=== PATIENT | male | born 1975 | race Caucasian/White ===

== ENCOUNTER 2023-12-04 14:31 | Outpatient (OUT) | payer BC, SELFPAY | END 2023-12-04 14:32 | disposition home or self-care (01) | LOC: PST 14:31 | PROVIDERS: Visit Provider Surgery | DX: Z01.818 Encounter for other preprocedural examination (principal); Z12.11 Encounter for screening for malignant neoplasm of colon ==

== ENCOUNTER 2023-12-12 06:23 | Day surgery (SDC) | payer BC, SELFPAY ==
--- OUTSIDE RECORDS SUMMARY | 2023-12-12 06:29 | XMS_ITS | CCD ---
Author Organization [facility] Care Team Providers Care Compressor Operator Portable Name Role Phone ASA PICKERING Attending Unavailable ASA PICKERING Admitting Unavailable DR PROSPER BURNS Primary Care Unavailable GRANT, DR CHENG Primary Care Unavailable SHAIKH RUBIO Admitting Unavailable MALGORZATA, DR HER Consulting Unavailable SHAIKH RUBIO Attending Unavailable SABI, DR BAN Hernandez Consulting Unavailable Janes Emerson Consulting Unavailable ALFA KHAN Consulting Unavailable SHAIKH RUBIO Consulting Unavailable PROSPER BURNS Attending Unavailable GEORGE RENEE Attending Unavailable PROSPER BURNS Referring Unavailable PROSPER BURNS Primary Care Unavailable Problems Active Problems Problem Classification Problem Date Documented Da te Episodic/Chronic Coma; stupor; and brain damage (1 source) Somnolence; Translations: [SOMNOLENCE] Onset: 07-10-2021 Episodic Esophageal disorders (1 source) Gastro-esophageal reflux disease without esophagitis; Translations: [GERD WITHOUT ESOPHAGITIS] Onset: 02-23-2021 Chronic Essential hypertension (1 source) Essential (primary) hypertension; Translations: [ESSENTIAL PRIMARY HYPERTENSION] Onset: 07-10-2021 Chronic Malaise and fatigue (1 source) Chronic fatigue, unspecified; Translations: [CHRONIC FATIGUE UNSPECIFIED] Onset: 07-10-2021 Chronic Other congenital anomalies (1 source) Klippel-Feil syndrome; 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] Onset: 07-10-2021 Chronic Other nutritional; endocrine; and metabolic disorders (1 source) Overweight; Translations: [OVERWEIGHT] Onset: 07-10-2021 Episodic Other screening for suspected conditions (not mental disorders or infectious disease) (1 source) Encounter for screening for malignant neoplasm of colon; Translations: [Encounter for screening for malignant neoplasm of colon] Onset: 11-13-2023 Episodic Pneumonia (except that caused by tuberculosis or sexually transmitted disease) (1 source) Pneumonia (except that caused by tuberculosis or sexually transmitted disease); Translations: [PNEUMONIA D/T CORONAVIRUS DIS 2019] Onset: 02-23-2021 Residual codes; unclassified (4 sources) Obstructive sleep apnea (adult) (pediatric); Translations: [OBSTRUCTIVE SLEEP APNEA] Onset: 07-04-2021 Chronic Residual codes; unclassified (1 source) Other sleep disorders; Translations: [OTHER SLEEP DISORDERS] Onset: 07-10-2021 Chronic Respiratory failure; insufficiency; arrest (adult) (1 source) Dependence on supplemental oxygen; Translations: [DEPENDENCE ON SUPPLEMENTAL OXYGEN] Onset: 02-23-2021 Chronic Unclassified (1 source) Colon Cancer Screening Onset: 11-13-2023 Viral infection (3 sources) COVID-19; Translations: [COVID-19] Onset: 02-17-2021 Past or Other Problems Problem Classification Problem Date Documented Da te Episodic/Chronic Other aftercare (1 source) Other terminal operations manager (current) drug therapy; Translations: [OTH LONG-TERM CURRENT DRUG THERAPY] Onset: 02-23-2021 Episodic Respiratory failure; insufficiency; arrest (adult) (1 source) Acute respiratory failure with hypoxia; Translations: [ACUTE RESPIRATORY FAIL W/HYPOXIA] Onset: 02-23-2021 Episodic Results Test Name Value Interpretation Reference Range Facil ity CBC AUTO DIFFon 02-21-2021 BASO # 0.0 103/ul Normal 0.0-0.1 [facility] Comment on above: Performed By: #### T ZACH, CMP, CRP #### [facility] [address] [place], [place] [address] Sam Serene Basophils/100 WBC (Bld) 0.6 % Normal 0.2-2.0 [facility] Comment on above: Performed By: #### T ZACH, CMP, CRP #### [facility] [address] [place], [place] [address] Sam Serene EO # 0.0 103/ul Normal 0.0-0.7 [facility] Comment on above: Performed By: #### T ZACH, CMP, CRP #### [facility] [address] [place], [place] [address] Sam Serene Eosinophils/100 WBC (Bld) 0.0 % Critically low 0.9-7.0 [facility] Comment on above: Performed By: #### Zully SERRANO CMP CRP #### [facility] [address] [place] [address] Sam Serene Erythrocyte distribution width (RBC) [Ratio] 13.2 % Normal 11.0-15.0 [facility] Comment on above: Performed By: #### Zully SERRANO CMP, CRP #### [facility] [address] [place] [address] Sam Serene Hematocrit (Bld) [Volume fraction] 41.3 % Critically low 42.0-54.0 [facility] Comment on above: Performed By: #### Zully SERRANO CMP, CRP #### [facility] [address] [place] [address] Sam Serene Hemoglobin (Bld) [Mass/Vol] 13.3 g/dL Critically low 14.0-18.0 [facility] Comment on above: Performed By: #### Zully SERRANO CMP, CRP #### [facility] [address] [place] [address] Sam Serene IG # 0.68 10e3/ul Critically high 0.00-0.03 [facility] Comment on above: Performed By: #### Zully SERRANO CMP, CRP #### [facility] [address] [place] [address] Sam Serene IG % 9.6 % Critically high 0.0-0.5 [facility] Comment on above: Performed By: #### Zully SERRANO CMP, CRP #### [facility] [address] [place] [address] Sam Serene LYMPH # 0.9 103/ul Critically low 1.2-3.8 [facility] Comment on above: Performed By: #### Zully SERRANO CMP, CRP #### [facility] [address] [place] [address] Sam Serene Lymphocytes/100 WBC (Bld) 12.8 % Critically low 20.5-60.0 [facility] Comment on above: Performed By: #### T ZACH, CMP, CRP #### [facility] [address] [place], [place] [address] Sam Serene MANUAL DIFF REQ NO Normal [facility] Comment on above: Performed By: #### Zully SERRANO CMP, CRP #### [facility] [address] [place] [id number] Sam Serene MCH (RBC) [Entitic mass] 26.8 pg Normal 25.9-34.0 [facility] Comment on above: Performed By: #### Zully SERRANO CMP, CRP #### [facility] [address] [place] [id number] Sam Serene MCHC (RBC) [Mass/Vol] 32.2 g/dL Normal 29.9-35.2 [facility] Comment on above: Performed By: #### Zully SERRANO CMP, CRP #### [facility] [address] [place] [id number] Sam Serene MCV (RBC) [Entitic vol] 83.1 fL Normal 80.0-94.0 [facility] Comment on above: Performed By: #### Zully SERRANO CMP, CRP #### [facility] [address] [place] [id number] Sam Serene MONO # 0.5 103/ul Normal 0.3-0.8 [facility] Comment on above: Performed By: #### Zully SERRANO CMP, CRP #### [facility] [address] [place] [id number] Sam Serene Monocytes/100 WBC (Bld) 7.2 % Normal 1.7-12.0 [facility] Comment on above: Performed By: #### Zully SERRANO CMP, CRP #### [facility] [address] [place] [id number] Sam Serene NEUT # 5.0 103/ul Normal 1.4-6.5 [facility] Comment on above: Performed By: #### Zully SERRANO CMP, CRP #### [facility] [address] [place] [id number] Sam Serene Neutrophils/100 WBC (Bld) 69.8 % Normal 43.0-75.0 [facility] Comment on above: Performed By: #### T ZACH, CMP, CRP #### [facility] [address] [place] [id number] Sam Cast Platelet mean volume (Bld) [Entitic vol] 9.5 fL Normal 9.5-13.5 [facility] Comment on above: Performed By: #### T ZACH, CMP, CRP #### [facility] [address] [place] [address] Sam Cast PLT 287 103/ul Normal 150-450 [facility] Comment on above: Performed By: #### T ZACH, CMP, CRP #### [facility] [address] [place] [address] Sam Cast RBC 4.97 106/ul Normal 4.70-6.10 [facility] Comment on above: Performed By: #### T ZACH, CMP, CRP #### [facility] [address] [place] [address] Sam Cast WBC 7.1 103/ul Normal 4.0-11.0 [facility] Comment on above: Performed By: #### T ZACH, CMP, CRP #### [facility] [address] [place], [place] [id number] Sam Cast CRPon 02-21-2021 CRP [Mass/Vol] mg/L Normal <=1.0 [facility] Comment on above: Performed By: #### T ZACH CMP, CRP #### [facility] [address] [place], [place] [id number] Sam Cast CULTURE SPUTUMon 02-21-2021 CULTURE SPUTUM Culture Observations: NORMAL RESPIRATORY ERNIE. Normal [facility] Comment on above: Performed By: #### T ZACH, CMP, CRP #### [facility] [address] [place], [place] [id number] Sam Cast PROF 14(COMP METB)on 021 Albumin [Mass/Vol] 2.5 g/dL Critically low 3.5-5.0 [facility] Comment on above: Performed By: #### C RP, CMP, SHEILA #### [facility] [address] [place] [id number] Sam Serene Albumin/Globulin [Mass ratio] 0.7 {ratio} Normal [facility] Comment on above: Performed By: #### C RPMERRILL, SHEILA #### [facility] [address] [place] [id number] Sam Serene ALP [Catalytic activity/Vol] 89 U/L Normal 38-126 [facility] Comment on above: Performed By: #### C RP CMP, SHEILA #### [facility] [address] [place] [address] Sam Serene ALT [Catalytic activity/Vol] 76 U/L Critically high 21-72 [facility] Comment on above: Performed By: #### C RPMERRILL, SHEILA #### [facility] [address] [place] [id number] Sam Serene Anion gap [Moles/Vol] 13.8 mmol/L Normal [facility] Comment on above: Performed By: #### C RP CMP, SHEILA #### [facility] [address] [place] [address] Sam Serene AST [Catalytic activity/Vol] 32 U/L Normal 17-59 [facility] Comment on above: Performed By: #### C ISRAEL CMP, SHEILA #### [facility] [address] [place] [id number] Sam Serene Bilirubin [Mass/Vol] 0.5 mg/dL Normal 0.2-1.3 [facility] Comment on above: Performed By: #### C RP CMP, SHEILA #### [facility] [address] [place] [phone] Sam Serene Calcium [Mass/Vol] 8.2 mg/dL Critically low 8.4-10.2 [facility] Comment on above: Performed By: #### C RP CMP, SHEILA #### [facility] [address] [place] [phone] Sam Serene Chloride [Moles/Vol] 108 mmol/L Critically high 98-107 [facility] Comment on above: Performed By: #### C RP CMP, SHEILA #### [facility] [address] [place], [place] [address] Sam Serene CO2 [Moles/Vol] 23.2 mmol/L Normal 22.0-30.0 [facility] Comment on above: Performed By: #### C RP, CMP, SHEILA #### [facility] [address] [place] [phone] Sam Serene Creatinine [Mass/Vol] 0.93 mg/dL Normal 0.66-1.25 [facility] Comment on above: Performed By: #### C RP, CMP, SHEILA #### [facility] [address] [place] [id number] Sam Serene EGFR-AF GAMBIAN >60 Normal >=60 [facility] Comment on above: Performed By: #### C RP, CMP, SHEILA #### [facility] [address] [place] [phone] Sam Serene EGFR-NON AF GAMBIAN >60 Normal >=60 [facility] Comment on above: Performed By: #### C RP, CMP, SHEILA #### [facility] [address] [place] [phone] Sam Serene Globulin (S) [Mass/Vol] 3.6 g/dL Normal [facility] Comment on above: Performed By: #### C RP, CMP, SHEILA #### [facility] [address] [place] [phone] Sam Serene Glucose [Mass/Vol] 161 mg/dL Critically high 74-106 [facility] Comment on above: Performed By: #### C RP, CMP, SHEILA #### [facility] [address] [place] [phone] Sam Serene Potassium [Moles/Vol] 4.0 mmol/L Normal 3.4-5.0 [facility] Comment on above: Performed By: #### C RP, CMP, SHEILA #### [facility] [address] [place] [phone] Sam Serene Protein [Mass/Vol] 6.1 g/dL Normal 6.1-8.2 [facility] Comment on above: Performed By: #### C RP, CMP, SHEILA #### [facility] [address] [place] [address] Sam Serene Sodium [Moles/Vol] 141 mmol/L Normal 137-145 [facility] Comment on above: Performed By: #### C RP, CMP, SHEILA #### [facility] [address] [place] [address] Sam Serene Urea nitrogen [Mass/Vol] 19.0 mg/dL Normal 9.0-20.0 [facility] Comment on above: Performed By: #### C RP, CMP, SHEILA #### [facility] [address] [place] [address] Sam Serene Urea nitrogen/Creatinine [Mass ratio] 20.4 mg/mg Normal [facility] Comment on above: Performed By: #### C RP, CMP, SHEILA #### [facility] [address] [place] [address] Sam Serene SPUTUM GRAM STAINon 02-22-20 21 COMMENTS Normal [facility] Comment on above: Performed By: #### T ZACH CMP, CRP #### [facility] [address] [place] [address] Sam Serene DIPHTHEROIDS Normal [facility] Comment on above: Performed By: #### Zully SERRANO CMP, CRP #### [facility] [address] [place] [address] Sam Serene EPITHELIALS <25 Normal [facility] Comment on above: Performed By: #### T ZACH CMP, CRP #### [facility] [address] [place] [address] Sam Serene FUNGAL ELEMENTS Normal [facility] Comment on above: Performed By: #### T ZACH CMP, CRP #### [facility] [address] [place] [address] Sam Serene GRAM NEG BACILLI RARE Normal [facility] Comment on above: Performed By: #### T ZACH CMP, CRP #### [facility] [address] [place] [address] Sam Serene GRAM NEG DIPPLOCOCCI Normal [facility] Comment on above: Performed By: #### T ZACH, CMP, CRP #### [facility] [address] [place] [address] Sam Serene GRAM POS BACILLI Normal [facility] Comment on above: Performed By: #### T ZACH, CMP, CRP #### [facility] [address] [place] [address] Sam Serene GRAM POSITIVE COCCI FEW Normal [facility] Comment on above: Performed By: #### T ZACH, CMP, CRP #### [facility] [address] [place] [address] Sam Serene WBC (Bld) [#/Vol] 10*3/uL Normal [facility] Comment on above: Performed By: #### T ZACH CMP, CRP #### [facility] [address] [place] [address] Sam Serene THEOPHYLLINEon 02-21-2021 THEOPHYLLINE 9.5 ug/mL Normal 8.0-20.0 [facility] Comment on above: Performed By: #### C RP, CMP, SEHILA #### [facility] [address] [place], [place] [id number] Sam Serene CBC AUTO DIFFon 02-20-2021 BASO # 0.0 103/ul Normal 0.0-0.1 [facility] Comment on above: Performed By: #### C BC #### [facility] [address] [place], [place] [id number] Sam Serene Basophils/100 WBC (Bld) 0.5 % Normal 0.2-2.0 [facility] Comment on above: Performed By: #### C BC #### [facility] [address] [place] [address] Sam Serene EO # 0.0 103/ul Normal 0.0-0.7 [facility] Comment on above: Performed By: #### C BC #### [facility] [address] [place] [address] Sam Serene Eosinophils/100 WBC (Bld) 0.0 % Critically low 0.9-7.0 [facility] Comment on above: Performed By: #### C BC #### [facility] [address] [place] [phone] Sam Cast Erythrocyte distribution width (RBC) [Ratio] 13.2 % Normal 11.0-15.0 [facility] Comment on above: Performed By: #### C BC #### [facility] [address] [place] [phone] Sam Cast Hematocrit (Bld) [Volume fraction] 40.8 % Critically low 42.0-54.0 [facility] Comment on above: Performed By: #### C BC #### [facility] [address] [place] [phone] Sam Cast Hemoglobin (Bld) [Mass/Vol] 13.1 g/dL Critically low 14.0-18.0 [facility] Comment on above: Performed By: #### C BC #### [facility] [address] [place] [address] Sammaurice Cast IG # 0.58 10e3/ul Critically high 0.00-0.03 [facility] Comment on above: Performed By: #### C BC #### [facility] [address] [place] [id number] Sam Serene IG % 9.7 % Critically high 0.0-0.5 [facility] Comment on above: Performed By: #### C BC #### [facility] [address] [place], [place] [id number] Sam Serene LYMPH # 0.8 103/ul Critically low 1.2-3.8 [facility] Comment on above: Performed By: #### C BC #### [facility] [address] [place], [place] [id number] Sam Cast Lymphocytes/100 WBC (Bld) 13.7 % Critically low 20.5-60.0 [facility] Comment on above: Performed By: #### C BC #### [facility] [address] [place], [place] [id number] Sam Cast MANUAL DIFF REQ NO Normal [facility] Comment on above: Performed By: #### C BC #### [facility] [address] [place] [id number] Sam Cast MCH (RBC) [Entitic mass] 26.7 pg Normal 25.9-34.0 [facility] Comment on above: Performed By: #### C BC #### [facility] [address] [place], [place] [id number] Sam Cast MCHC (RBC) [Mass/Vol] 32.1 g/dL Normal 29.9-35.2 [facility] Comment on above: Performed By: #### C BC #### [facility] [address] [place] [phone] Sammaurice Cast MCV (RBC) [Entitic vol] 83.1 fL Normal 80.0-94.0 [facility] Comment on above: Performed By: #### C BC #### [facility] [address] [place] [address] Sam Cast MONO # 0.5 103/ul Normal 0.3-0.8 [facility] Comment on above: Performed By: #### C BC #### [facility] [address] [place], [place] [id number] Sam Cast Monocytes/100 WBC (Bld) 8.5 % Normal 1.7-12.0 [facility] Comment on above: Performed By: #### C BC #### [facility] [address] [place] [address] Sam Cast NEUT # 4.0 103/ul Normal 1.4-6.5 [facility] Comment on above: Performed By: #### C BC #### [facility] [address] [place], [place] [id number] Sam Serene Neutrophils/100 WBC (Bld) 67.6 % Normal 43.0-75.0 [facility] Comment on above: Performed By: #### C BC #### [facility] [address] [place], [place] [id number] Sam Serene Platelet mean volume (Bld) [Entitic vol] 9.3 fL Critically low 9.5-13.5 [facility] Comment on above: Performed By: #### C BC #### [facility] [address] [place] [id number] Sammaurice Herberten PLT 253 103/ul Normal 150-450 [facility] Comment on above: Performed By: #### C BC #### [facility] [address] [place], [place] [address] Sammaurice Cast RBC 4.91 106/ul Normal 4.70-6.10 [facility] Comment on above: Performed By: #### C BC #### [facility] [address] [place], [place] [address] Sammaurice Herberten WBC 6.0 103/ul Normal 4.0-11.0 [facility] Comment on above: Performed By: #### C BC #### [facility] [address] [place], [place] [address] Sammaurice Cast CRPon 02-20-2021 CRP 0.6 mg/dL Normal <=1.0 [facility] Comment on above: Performed By: #### Zully SERRANO CMP, CRP #### [facility] [address] [place], [place] [id number] Sam Cast PROF 14(COMP METB)on 021 Albumin [Mass/Vol] 2.5 g/dL Critically low 3.5-5.0 [facility] Comment on above: Performed By: #### Zully SERRANO CMP, CRP #### [facility] [address] [place], [place] [id number] Sam Serene Albumin/Globulin [Mass ratio] 0.7 {ratio} Normal [facility] Comment on above: Performed By: #### Zully SERRANO CMP, CRP #### [facility] [address] [place], [place] [address] Sam Serene ALP [Catalytic activity/Vol] 92 U/L Normal 38-126 [facility] Comment on above: Performed By: #### Zully SERRANO CMP, CRP #### [facility] [address] [place], [place] [id number] Sam Serene ALT [Catalytic activity/Vol] 79 U/L Critically high 21-72 [facility] Comment on above: Performed By: #### T ZACH, CMP, CRP #### [facility] [address] [place], [place] [address] Sam Serene Anion gap [Moles/Vol] 14.8 mmol/L Normal [facility] Comment on above: Performed By: #### Zully SERRANO CMP, CRP #### [facility] [address] [place], [place] [address] Sam Serene AST [Catalytic activity/Vol] 41 U/L Normal 17-59 [facility] Comment on above: Performed By: #### Zully SERRANO CMP, CRP #### [facility] [address] [place], [place] [address] Sam Serene Bilirubin [Mass/Vol] 0.4 mg/dL Normal 0.2-1.3 [facility] Comment on above: Performed By: #### Zully SERRANO CMP, CRP #### [facility] [address] [place] [address] Sam Serene Calcium [Mass/Vol] 8.0 mg/dL Critically low 8.4-10.2 [facility] Comment on above: Performed By: #### Zully SERRANO CMP, CRP #### [facility] [address] [place] [id number] Sam Serene Chloride [Moles/Vol] 106 mmol/L Normal 98-107 [facility] Comment on above: Performed By: #### Zully SERRANO CMP, CRP #### [facility] [address] [place] [phone] Sam Serene CO2 [Moles/Vol] 24.2 mmol/L Normal 22.0-30.0 [facility] Comment on above: Performed By: #### Zully SERRANO CMP, CRP #### [facility] [address] [place] [phone] Sam Serene Creatinine [Mass/Vol] 1.00 mg/dL Normal 0.66-1.25 [facility] Comment on above: Performed By: #### Zully SERRANO CMP, CRP #### [facility] [address] [place], [place] [address] Sam Serene EGFR-AF GAMBIAN >60 Normal >=60 [facility] Comment on above: Performed By: #### Zully SERRANO CMP, CRP #### [facility] [address] [place] [id number] Sam Serene EGFR-NON AF GAMBIAN >60 Normal >=60 [facility] Comment on above: Performed By: #### Zully SERRANO CMP, CRP #### [facility] [address] [place] [address] Sam Serene Globulin (S) [Mass/Vol] 3.5 g/dL Normal [facility] Comment on above: Performed By: #### Zully SERRANO CMP, CRP #### [facility] [address] [place] [address] Sam Serene Glucose [Mass/Vol] 159 mg/dL Critically high 74-106 [facility] Comment on above: Performed By: #### Zully SERRANO CMP, CRP #### [facility] [address] [place] [address] Sam Serene Potassium [Moles/Vol] 4.0 mmol/L Normal 3.4-5.0 [facility] Comment on above: Performed By: #### Zully SERRANO CMP, CRP #### [facility] [address] [place] [address] Sam Serene Protein [Mass/Vol] 6.0 g/dL Critically low 6.1-8.2 [facility] Comment on above: Performed By: #### Zully SERRANO CMP, CRP #### [facility] [address] [place] [id number] Sam Serene Sodium [Moles/Vol] 141 mmol/L Normal 137-145 [facility] Comment on above: Performed By: #### Zully SERRANO CMP, CRP #### [facility] [address] [place] [id number] Sam Serene Urea nitrogen [Mass/Vol] 21.0 mg/dL Critically high 9.0-20.0 [facility] Comment on above: Performed By: #### Zully SERRANO CMP, CRP #### [facility] [address] [place] [address] Sam Serene Urea nitrogen/Creatinine [Mass ratio] 21.0 mg/mg Normal [facility] Comment on above: Performed By: #### T ZACH CMP, CRP #### [facility] [address] [place] [address] Sam Serene THEOPHYLLINEon 02-20-2021 THEOPHYLLINE 7.7 ug/mL Critically low 8.0-20.0 [facility] Comment on above: Performed By: #### Zully SERRANO CMP, CRP #### [facility] [address] [place] [address] Sam Serene CBC W MANUAL DIFFon 02-20-20 21 ATYPICAL LYMPH # Normal [facility] [facility] Comment on above: Performed By: #### C KYM #### [facility] [address] [place] [address] Sam Serene ATYPICAL LYMPH % Normal [facility] Comment on above: Performed By: #### C KYM #### [facility] [address] [place] [address] Sam Serene BAND # 0.1 103/ul Normal 0.0-0.3 [facility] Comment on above: Performed By: #### C KYM #### [facility] [address] [place] [address] Sam Serene BAND % 1 % Normal 0-5 [facility] Comment on above: Performed By: #### C KYM #### [facility] [address] [place] [address] Sam Serene BASOM # 0.00 103/ul Normal 0.00-0.10 [facility] Comment on above: Performed By: #### C KYM #### [facility] [address] [place] [address] Sam Serene BASOM % 0.0 % Critically low 0.2-2.0 [facility] Comment on above: Performed By: #### C KYM #### [facility] [address] [place] [address] Sam Serene BLAST # Normal [facility] Comment on above: Performed By: #### C KYM #### [facility] [address] [place] [address] Sam Serene BLAST % Normal [facility] Comment on above: Performed By: #### C KYM #### [facility] [address] [id number] Sam Serene CORRECTED WBC Normal 4.0-11.0 [facility] Comment on above: Performed By: #### C KYM #### [facility] [address] [address] Sam Serene EOS # 0.00 103/ul Normal 0.00-0.70 [facility] Comment on above: Performed By: #### C KYM #### [facility] [address] [address] Sam Serene EOS% 0.0 % Critically low 0.9-7.[address] [facility] Comment on above: Performed By: #### C KYM #### [facility] [address] [address] Sam Serene HCT 40.9 % Critically low 42.0-54.[address] [facility] Comment on above: Performed By: #### C KYM #### [facility] [address] [address] Sam Serene HGB 13.3 g/dl Critically low 14.0-18.[address] [facility] Comment on above: Performed By: #### C KYM #### [facility] [address] [address] Sam Serene LYMPHM # 0.90 103/ul Critically low 1.20-3.80 [facility] Comment on above: Performed By: #### C KYM #### [facility] [address] [address] Sam Serene LYMPHM% 15.0 % Critically low 20.5-60.0 [facility] Comment on above: Performed By: #### C KYM #### [facility] [address] [address] Sam Serene MCH 26.9 pg Normal 25.9-34.0 [facility] Comment on above: Performed By: #### C KYM #### [facility] [address] [address] Sammaurice Herberten MCHC 32.5 g/dl Normal 29.9-35.2 [facility] Comment on above: Performed By: #### C KYM #### [facility] [address] [address] Sammaurice Herberten MCV 82.8 fL Normal 80.0-94.0 [facility] Comment on above: Performed By: #### Tristian MEJÍA #### [facility] [address] [place] [address] Sam Serene METAMYELOCYTE # Normal [facility] Comment on above: Performed By: #### Tristian MEJÍA #### [facility] [address] [place] [address] Sam Serene METAMYELOCYTE % Normal [facility] Comment on above: Performed By: #### Tristian MEJÍA #### [facility] [address] [place] [address] Sam Serene MONOM# 0.66 103/ul Normal 0.30-0.80 [facility] Comment on above: Performed By: #### Tristian MEJÍA #### [facility] [address] [place] [address] Sam Serene MONOM% 11.0 % Normal 1.7-12.0 [facility] Comment on above: Performed By: #### Tristian MEJÍA #### [facility] [address] [place] [address] Sammaurice Herberten MPV 9.1 fL Critically low 9.5-13.5 [facility] Comment on above: Performed By: #### Tristian MEJÍA #### [facility] [address] [place] [address] Sam Serene MYELOCYTE # Normal [facility] Comment on above: Performed By: #### C KYM #### [facility] [address] [place] [address] Sam Serene MYELOCYTE % Normal [facility] Comment on above: Performed By: #### Tristian MEJÍA #### [facility] [address] [place] [address] Sam Serene NRBC Normal [facility] Comment on above: Performed By: #### Tristian MEJÍA #### [facility] [address] [place], [place] [address] Sam Serene PLT 234 103/ul Normal 150-450 [facility] Comment on above: Performed By: #### Tristian MEJÍA #### [facility] [address] [place], [place] [address] Sam Serene RBC 4.94 106/ul Normal 4.70-6.10 [facility] Comment on above: Performed By: #### Tristian MEJÍA #### [facility] [address] [id number] Sam Serene RDW 13.1 % Normal 11.0-15.0 [facility] Comment on above: Performed By: #### Tristian MEJÍA #### [facility] [address] [address] Sam Serene SEG # 4.38 103/ul Normal 1.40-6.50 [facility] Comment on above: Performed By: #### Tristian MEJÍA #### [facility] [address] [place], [place] [address] Sam Serene SEG % 73.0 % Normal 43.0-75.0 [facility] Comment on above: Performed By: #### Tristian MEJÍA #### [facility] [address] [place], [place] [address] Sam Serene WBC 6.0 103/ul Normal 4.0-11.0 [facility] Comment on above: Performed By: #### Tristian MEJÍA #### [facility] [address] [place], [place] [address] Sam Serene CRPon 02-19-2021 CRP 2.0 mg/dL Critically high <=1.0 [facility] Comment on above: Performed By: #### T ZACH, CMP, CRP #### [facility] [address] [place], [place] [address] Sammaurice Herberten PROF 14(COMP METB)on 021 Albumin [Mass/Vol] 2.4 g/dL Critically low 3.5-5.0 [facility] Comment on above: Performed By: #### T ZACH, CMP, CRP #### [facility] [address] [id number] Sam Serene Albumin/Globulin [Mass ratio] 0.7 {ratio} Normal [facility] Comment on above: Performed By: #### T ZACH, CMP, CRP #### [facility] [address] [id number] Sam Serene ALP [Catalytic activity/Vol] 106 U/L Normal 38-126 [facility] Comment on above: Performed By: #### T ZACH, CMP, CRP #### [facility] [address] [id number] Sam Serene ALT [Catalytic activity/Vol] 73 U/L Critically high 21-72 [facility] Comment on above: Performed By: #### T AZCH, CMP, CRP #### [facility] [address] [id number] Sam Serene Anion gap [Moles/Vol] 13.6 mmol/L Normal [facility] Comment on above: Performed By: #### T ZACH, CMP, CRP #### [facility] [address] [id number] Sam Serene AST [Catalytic activity/Vol] 56 U/L Normal 17-59 [facility] Comment on above: Performed By: #### T ZACH, CMP, CRP #### [facility] [address] [id number] Sam Serene Bilirubin [Mass/Vol] 0.3 mg/dL Normal 0.2-1.3 [facility] Comment on above: Performed By: #### T ZACH, CMP, CRP #### [facility] [address] [id number] Sam Serene Calcium [Mass/Vol] 8.1 mg/dL Critically low 8.4-10.2 [facility] Comment on above: Performed By: #### T ZACH, CMP, CRP #### [facility] [address] [id number] Sam Serene Chloride [Moles/Vol] 108 mmol/L Critically high 98-107 [facility] Comment on above: Performed By: #### Zully SERRANO CMP, CRP #### [facility] [address] [address] Sam Serene CO2 [Moles/Vol] 22.3 mmol/L Normal 22.0-30.0 [facility] Comment on above: Performed By: #### Zully SERRANO CMP, CRP #### [facility] [address] [address] Sam Serene Creatinine [Mass/Vol] 0.91 mg/dL Normal 0.66-1.25 [facility] Comment on above: Performed By: #### Zully SERRANO CMP, CRP #### [facility] [address] [address] Sam Serene EGFR-AF GAMBIAN >60 Normal >=60 [facility] Comment on above: Performed By: #### Zully SERRANO CMP, CRP #### [facility] [address] [address] Sam Serene EGFR-NON AF GAMBIAN >60 Normal >=60 [facility] Comment on above: Performed By: #### Zully SERRANO CMP, CRP #### [facility] [address] [place] [address] Sam Serene Globulin (S) [Mass/Vol] 3.6 g/dL Normal [facility] Comment on above: Performed By: #### Zully SERRANO CMP, CRP #### [facility] [address] [address] Sam Serene Glucose [Mass/Vol] 150 mg/dL Critically high 74-106 [facility] Comment on above: Performed By: #### Zully SERRANO CMP, CRP #### [facility] [address] [place] [address] Sam Serene Potassium [Moles/Vol] 3.9 mmol/L Normal 3.4-5.0 [facility] Comment on above: Performed By: #### Zully SERRANO CMP, CRP #### [facility] [address] [place], [place] [address] Sam Serene Protein [Mass/Vol] 6.0 g/dL Critically low 6.1-8.2 [facility] Comment on above: Performed By: #### Zully SERRANO CMP, CRP #### [facility] [address] [address] Sam Serene Sodium [Moles/Vol] 140 mmol/L Normal 137-145 [facility] Comment on above: Performed By: #### Zully SERRANO CMP, CRP #### [facility] [address] [address] Sam Serene Urea nitrogen [Mass/Vol] 20.0 mg/dL Normal 9.0-20.0 [facility] Comment on above: Performed By: #### Zully SERRANO CMP, CRP #### [facility] [address] [place] [address] Sam Serene Urea nitrogen/Creatinine [Mass ratio] 22.0 mg/mg Normal [facility] Comment on above: Performed By: #### Zully SERRANO CMP, CRP #### [facility] [address] [place] [address] Sam Serene THEOPHYLLINEon 02-19-2021 THEOPHYLLINE 12.1 ug/mL Normal 8.0-20.0 [facility] Comment on above: Performed By: #### Zully SERRANO CMP, CRP #### [facility] [address] [place] [address] Sam Serene CBC W MANUAL DIFFon 02-19-20 21 ATYPICAL LYMPH # 0.16 103/ul Normal [facility] Comment on above: Performed By: #### Zully SERRANO CMP, CRP #### [facility] [address] [place] [address] Sam Seerne ATYPICAL LYMPH % 4 % Normal [facility] Comment on above: Performed By: #### Zully SERRANO CMP, CRP #### [facility] [address] [place] [address] Sam Serene BAND # Normal 0.0-0.3 [facility] Comment on above: Performed By: #### Zully SERRANO CMP, CRP #### [facility] [address] [place], [place] [id number] Sam Serene BAND % Normal 0-5 [facility] Comment on above: Performed By: #### Zully SERRANO CMP, CRP #### [facility] [address] [address] Sam Serene BASOM # 0.00 103/ul Normal 0.00-0.10 [facility] Comment on above: Performed By: #### Zully SERRANO CMP, CRP #### [facility] [address] [address] Sam Serene BASOM % 0.0 % Critically low 0.2-2.0 [facility] Comment on above: Performed By: #### Zully SERRANO CMP, CRP #### [facility] [address] [place] [address] Sam Serene BLAST # Normal [facility] Comment on above: Performed By: #### Zully SERRANO CMP, CRP #### [facility] [address] [place] [address] Sam Serene BLAST % Normal [facility] Comment on above: Performed By: #### Zully SERRANO CMP, CRP #### [facility] [address] [place] [address] Sam Serene CORRECTED WBC Normal 4.0-11.0 [facility] Comment on above: Performed By: #### Zully SERRANO CMP, CRP #### [facility] [address] [place] [address] Sam Serene EOS # 0.00 103/ul Normal 0.00-0.70 [facility] Comment on above: Performed By: #### Zully SERRANO CMP, CRP #### [facility] [address] [place] [address] Sam Serene EOS% 0.0 % Critically low 0.9-7.0 [facility] Comment on above: Performed By: #### Zully SERRANO CMP, CRP #### [facility] [address] [place] [address] Sam Serene HCT 43.2 % Normal 42.0-54.0 [facility] Comment on above: Performed By: #### T ZACH, CMP, CRP #### [facility] [address] [address] Sammaurice Herberten HGB 13.7 g/dl Critically low 14.0-18.[address] [facility] Comment on above: Performed By: #### T ZACH, CMP, CRP #### [facility] [address] [address] Sammaurice Cast LYMPHM # 0.58 103/ul Critically low 1.20-3.80 [facility] Comment on above: Performed By: #### T ZACH, CMP, CRP #### [facility] [address] [address] Sam Serene LYMPHM% 15.0 % Critically low 20.5-60.[address] [facility] Comment on above: Performed By: #### T ZACH, CMP, CRP #### [facility] [address] [address] Sam Herberten MCH 26.7 pg Normal 25.9-34.0 [facility] Comment on above: Performed By: #### T ZACH, CMP, CRP #### [facility] [address] [address] Sam Cast MCHC 31.7 g/dl Normal 29.9-35.2 [facility] Comment on above: Performed By: #### T ZACH, CMP, CRP #### [facility] [address] [address] Sam Herberten MCV 84.0 fL Normal 80.0-94.0 [facility] Comment on above: Performed By: #### T ZACH, CMP, CRP #### [facility] [address] [address] Sam Serene METAMYELOCYTE # Normal [facility] Comment on above: Performed By: #### T ZACH, CMP, CRP #### [facility] [address] [id number] Sam Serene METAMYELOCYTE % Normal [facility] Comment on above: Performed By: #### T ZACH, CMP, CRP #### [facility] [address] [address] Sam Serene MONOM# 0.55 103/ul Normal 0.30-0.80 [facility] Comment on above: Performed By: #### Zully SERRANO CMP, CRP #### [facility] [address] [id number] Sam Serene MONOM% 14.0 % Critically high 1.7-12.0 [facility] Comment on above: Performed By: #### Zully SERRANO CMP, CRP #### [facility] [address] [id number] Sam Serene MPV 9.4 fL Critically low 9.5-13.5 [facility] Comment on above: Performed By: #### Zully SERRANO CMP, CRP #### [facility] [address] [place] [address] Sam Serene MYELOCYTE # Normal [facility] Comment on above: Performed By: #### Zully SERRANO CMP, CRP #### [facility] [address] [address] Sam Serene MYELOCYTE % Normal [facility] Comment on above: Performed By: #### Zully SERRANO CMP, CRP #### [facility] [address] [id number] Sam Serene NRBC Normal [facility] Comment on above: Performed By: #### Zully SERRANO CMP, CRP #### [facility] [address] [id number] Sam Serene PLT 219 103/ul Normal 150-450 [facility] Comment on above: Performed By: #### T ZACH, CMP, CRP #### [facility] [address] [id number] Sam Serene RBC 5.14 106/ul Normal 4.70-6.10 [facility] Comment on above: Performed By: #### T ZACH, CMP, CRP #### [facility] [address] [address] Sam Serene RDW 13.0 % Normal 11.0-15.0 [facility] Comment on above: Performed By: #### Zully SERRANO CMP, CRP #### [facility] [address] [id number] Sam Cast SEG # 2.61 103/ul Normal 1.40-6.50 [facility] Comment on above: Performed By: #### Zully SERRANO CMP, CRP #### [facility] [address] [id number] Sam Cast SEG % 67.0 % Normal 43.0-75.0 [facility] Comment on above: Performed By: #### Zully SERRANO CMP, CRP #### [facility] [address] [id number] Sammaurice Cast WBC 3.9 103/ul Critically low 4.0-11.[address] [facility] Comment on above: Performed By: #### Zully SERRANO CMP, CRP #### [facility] [address] [address] Sam Cast CRPon 02-18-2021 CRP 5.7 mg/dL Critically high <=1.0 [facility] Comment on above: Performed By: #### Zully SERRANO CMP, CRP #### [facility] [address] [id number] Sam Cast PROF 14(COMP METB)on 021 Albumin [Mass/Vol] 2.5 g/dL Critically low 3.5-5.0 [facility] Comment on above: Performed By: #### Zully SERRANO CMP, CRP #### [facility] [address] [address] Sam Cast Albumin/Globulin [Mass ratio] 0.6 {ratio} Normal [facility] Comment on above: Performed By: #### Zully SERRANO CMP, CRP #### [facility] [address] [id number] Sam Cast ALP [Catalytic activity/Vol] 128 U/L Critically high 38-126 [facility] Comment on above: Performed By: #### Zully SERRANO CMP, CRP #### [facility] [address] [id number] Sam Serene ALT [Catalytic activity/Vol] 68 U/L Normal 21-72 [facility] Comment on above: Performed By: #### Zully SERRANO CMP, CRP #### [facility] [address] [address] Sam Serene Anion gap [Moles/Vol] 12.3 mmol/L Normal [facility] Comment on above: Performed By: #### Zully SERRANO CMP, CRP #### [facility] [address] [address] Sam Serene AST [Catalytic activity/Vol] 69 U/L Critically high 17-59 [facility] Comment on above: Performed By: #### Zully SERRANO CMP, CRP #### [facility] [address] [place] [address] Sam Serene Bilirubin [Mass/Vol] 0.3 mg/dL Normal 0.2-1.3 [facility] Comment on above: Performed By: #### Zully SERRANO CMP, CRP #### [facility] [address] [address] Sam Serene Calcium [Mass/Vol] 8.4 mg/dL Normal 8.4-10.2 [facility] Comment on above: Performed By: #### Zully SERRANO CMP, CRP #### [facility] [address] [place] [address] Sam Serene Chloride [Moles/Vol] 108 mmol/L Critically high 98-107 [facility] Comment on above: Performed By: #### Zully SERRANO CMP, CRP #### [facility] [address] [place] [address] Sam Serene CO2 [Moles/Vol] 24.7 mmol/L Normal 22.0-30.0 [facility] Comment on above: Performed By: #### Zully SERRANO CMP, CRP #### [facility] [address] [address] Sam Serene Creatinine [Mass/Vol] 0.93 mg/dL Normal 0.66-1.25 [facility] Comment on above: Performed By: #### Zully SERRANO CMP, CRP #### [facility] [address] [place], [place] [address] Sam Serene EGFR-AF GAMBIAN >60 Normal >=60 [facility] Comment on above: Performed By: #### Zully SERRANO CMP, CRP #### [facility] [address] [place], [place] [address] Sam Serene EGFR-NON AF GAMBIAN >60 Normal >=60 [facility] Comment on above: Performed By: #### Zully SERRANO CMP, CRP #### [facility] [address] [id number] Sam Serene Globulin (S) [Mass/Vol] 4.0 g/dL Normal [facility] Comment on above: Performed By: #### Zully SERRANO CMP, CRP #### [facility] [address] [id number] Sam Serene Glucose [Mass/Vol] 137 mg/dL Critically high 74-106 [facility] Comment on above: Performed By: #### Zully SERRANO CMP, CRP #### [facility] [address] [address] Sam Serene Potassium [Moles/Vol] 4.0 mmol/L Normal 3.4-5.0 [facility] Comment on above: Performed By: #### Zully SERRANO CMP, CRP #### [facility] [address] [id number] Sam Serene Protein [Mass/Vol] 6.5 g/dL Normal 6.1-8.2 [facility] Comment on above: Performed By: #### Zully SERRANO CMP, CRP #### [facility] [address] [id number] Sam Serene Sodium [Moles/Vol] 141 mmol/L Normal 137-145 [facility] Comment on above: Performed By: #### Zully SERRANO CMP, CRP #### [facility] [address] [id number] Sam Serene Urea nitrogen [Mass/Vol] 17.0 mg/dL Normal 9.0-20.0 [facility] Comment on above: Performed By: #### Zully ZACH CMP, CRP #### [facility] [address] [place], [place] [id number] Sam Serene Urea nitrogen/Creatinine [Mass ratio] 18.3 mg/mg Normal [facility] Comment on above: Performed By: #### T ZACH CMP, CRP #### [facility] [address] [place], [place] [id number] Sam Serene THEOPHYLLINEon 02-18-2021 THEOPHYLLINE 6.7 ug/mL Critically low 8.0-20.0 [facility] Comment on above: Performed By: #### T ZACH CMP, CRP #### [facility] [address] [place], [place] [id number] Sam Serene CBC AUTO DIFFon 02-17-2021 BASO # 0.0 103/ul Normal 0.0-0.1 [facility] Comment on above: Performed By: #### C BC #### [facility] [address] [place], [place] [id number] Sam Serene Basophils/100 WBC (Bld) 0.3 % Normal 0.2-2.0 [facility] Comment on above: Performed By: #### C BC #### [facility] [address] [place], [place] [id number] Sam Serene EO # 0.0 103/ul Normal 0.0-0.7 [facility] Comment on above: Performed By: #### C BC #### [facility] [address] [place], [place] [id number] Sam Serene Eosinophils/100 WBC (Bld) 0.0 % Critically low 0.9-7.0 [facility] Comment on above: Performed By: #### C BC #### [facility] [address] [place], [place] [id number] Sam Serene Erythrocyte distribution width (RBC) [Ratio] 13.2 % Normal 11.0-15.0 [facility] Comment on above: Performed By: #### C BC #### [facility] [address] [place], [place] [id number] Sam Serene Hematocrit (Bld) [Volume fraction] 41.9 % Critically low 42.0-54.0 [facility] Comment on above: Performed By: #### C BC #### [facility] [address] [id number] Sam Serene Hemoglobin (Bld) [Mass/Vol] 13.4 g/dL Critically low 14.0-18.0 [facility] Comment on above: Performed By: #### C BC #### [facility] [address] [id number] Sammaurice Cast IG # 0.06 [id number]/ul Critically high 0.00-0.03 [facility] Comment on above: Performed By: #### C BC #### [facility] [address] [id number] Sam Serene IG % 1.9 % Critically high 0.0-0.5 [facility] Comment on above: Performed By: #### C BC #### [facility] [address] [place] [address] Sam Serene LYMPH # 0.5 103/ul Critically low 1.2-3.[address] [facility] Comment on above: Performed By: #### C BC #### [facility] [address] [place], [place] [id number] Sam Cast Lymphocytes/100 WBC (Bld) 15.7 % Critically low 20.5-60.0 [facility] Comment on above: Performed By: #### C BC #### [facility] [address] [place], [place] [id number] Sam Cast MANUAL DIFF REQ NO Normal [facility] Comment on above: Performed By: #### C BC #### [facility] [address] [place], [place] [id number] Sam Cast MCH (RBC) [Entitic mass] 26.7 pg Normal 25.9-34.0 [facility] Comment on above: Performed By: #### C BC #### [facility] [address] [place], [place] [id number] Sam Cast MCHC (RBC) [Mass/Vol] 32.0 g/dL Normal 29.9-35.2 [facility] Comment on above: Performed By: #### C BC #### [facility] [address] [place], [place] [address] Sam Cast MCV (RBC) [Entitic vol] 83.5 fL Normal 80.0-94.0 [facility] Comment on above: Performed By: #### C BC #### [facility] [address] [place] [id number] Sammaurice Cast MONO # 0.2 103/ul Critically low 0.3-0.[address] [facility] Comment on above: Performed By: #### C BC #### [facility] [address] [place] [id number] Sam Serene Monocytes/100 WBC (Bld) 5.7 % Normal 1.7-12.0 [facility] Comment on above: Performed By: #### C BC #### [facility] [address] [place] [address] Sam Serene NEUT # 2.4 103/ul Normal 1.4-6.5 [facility] Comment on above: Performed By: #### C BC #### [facility] [address] [place] [id number] Sam Serene Neutrophils/100 WBC (Bld) 76.4 % Critically high 43.0-75.0 [facility] Comment on above: Performed By: #### C BC #### [facility] [address] [place] [id number] Sam Cast Platelet mean volume (Bld) [Entitic vol] 9.9 fL Normal 9.5-13.5 [facility] Comment on above: Performed By: #### C BC #### [facility] [address] [place] [id number] Sam Serene PLT 156 103/ul Normal 150-450 [facility] Comment on above: Performed By: #### C BC #### [facility] [address] [place] [id number] Sam Serene RBC 5.02 106/ul Normal 4.70-6.10 [facility] Comment on above: Performed By: #### C BC #### [facility] [address] [place], [place] [address] Sam Serene WBC 3.2 103/ul Critically low 4.0-11.[address] [facility] Comment on above: Performed By: #### C BC #### [facility] [address] [place] [id number] Sammaurice Cast CRPon 02-17-2021 CRP [Mass/Vol] mg/L Critically high <=1.0 [facility] Comment on above: Performed By: #### Zully SERRANO CMP, CRP #### [facility] [address] [place], [place] [address] Sam Serene CRP [Mass/Vol] mg/L Critically high <=1.0 [facility] Comment on above: Performed By: #### Zully SERRANO CMP, CRP #### [facility] [address] [place], [place] [id number] Sam Serene LACTATE/LACTIC ACIDon 2020 Lactate [Moles/Vol] 1.0 mmol/L Normal 0.7-2.0 [facility] Comment on above: Performed By: #### L ACT #### [facility] [address] [place], [place] [id number] Sam Serene Lactate [Moles/Vol] 1.1 mmol/L Normal 0.7-2.0 [facility] Comment on above: Performed By: #### L ACT #### [facility] [address] [place], [place] [id number] Sammaurice Cast PROF 14(COMP METB)on 021 Albumin [Mass/Vol] 2.4 g/dL Critically low 3.5-5.0 [facility] Comment on above: Performed By: #### Zully SERRANO CMP, CRP #### [facility] [address] [place], [place] [id number] Sam Serene Albumin/Globulin [Mass ratio] 0.6 {ratio} Normal [facility] Comment on above: Performed By: #### Zully SERRANO CMP, CRP #### [facility] [address] [place] [id number] Sam Serene ALP [Catalytic activity/Vol] 145 U/L Critically high 38-126 [facility] Comment on above: Performed By: #### Zully SERRANO CMP, CRP #### [facility] [address] [place] [address] Sam Serene ALT [Catalytic activity/Vol] 66 U/L Normal 21-72 [facility] Comment on above: Performed By: #### Zully SERRANO CMP, CRP #### [facility] [address] [place] [address] Sam Serene Anion gap [Moles/Vol] 14.4 mmol/L Normal [facility] Comment on above: Performed By: #### Zully SERRANO CMP, CRP #### [facility] [address] [place] [address] Sam Serene AST [Catalytic activity/Vol] 82 U/L Critically high 17-59 [facility] Comment on above: Performed By: #### Zully SERRANO CMP, CRP #### [facility] [address] [place] [address] Sam Serene Bilirubin [Mass/Vol] 0.4 mg/dL Normal 0.2-1.3 [facility] Comment on above: Performed By: #### Zully SERRANO CMP, CRP #### [facility] [address] [place] [address] Sam Serene Calcium [Mass/Vol] 8.1 mg/dL Critically low 8.4-10.2 [facility] Comment on above: Performed By: #### Zully SERRANO CMP, CRP #### [facility] [address] [place] [address] Sam Serene Chloride [Moles/Vol] 105 mmol/L Normal 98-107 [facility] Comment on above: Performed By: #### Zully SERRANO CMP, CRP #### [facility] [address] [place] [address] Sam Serene CO2 [Moles/Vol] 23.7 mmol/L Normal 22.0-30.0 [facility] Comment on above: Performed By: #### Zully SERRANO CMP, CRP #### [facility] [address] [place] [address] Sam Serene Creatinine [Mass/Vol] 0.84 mg/dL Normal 0.66-1.25 [facility] Comment on above: Performed By: #### Zully SERRANO CMP, CRP #### [facility] [address] [place] [address] Sam Serene EGFR-AF GAMBIAN >60 Normal >=60 [facility] Comment on above: Performed By: #### Zully SERRANO CMP, CRP #### [facility] [address] [place] [address] Sam Serene EGFR-NON AF GAMBIAN >60 Normal >=60 [facility] Comment on above: Performed By: #### Zully SERRANO CMP, CRP #### [facility] [address] [place] [address] Sam Serene Globulin (S) [Mass/Vol] 4.0 g/dL Normal [facility] Comment on above: Performed By: #### Zully SERRANO CMP, CRP #### [facility] [address] [place] [address] Sam Serene Glucose [Mass/Vol] 142 mg/dL Critically high 74-106 [facility] Comment on above: Performed By: #### Zully SERRANO CMP, CRP #### [facility] [address] [place] [address] Sam Serene Potassium [Moles/Vol] 4.1 mmol/L Normal 3.4-5.0 [facility] Comment on above: Performed By: #### Zully SERRANO CMP, CRP #### [facility] [address] [place] [address] Sam Serene Protein [Mass/Vol] 6.4 g/dL Normal 6.1-8.2 [facility] Comment on above: Performed By: #### Zully SERRANO CMP, CRP #### [facility] [address] [place] [address] Sam Serene Sodium [Moles/Vol] 139 mmol/L Normal 137-145 [facility] Comment on above: Performed By: #### Zully SERRANO CMP, CRP #### [facility] [address] [place] [address] Sammaurice Herberten Urea nitrogen [Mass/Vol] 13.0 mg/dL Normal 9.0-20.0 [facility] Comment on above: Performed By: #### Zully SERRANO CMP, CRP #### [facility] [address] [place] [address] Sammaurice Cast Urea nitrogen/Creatinine [Mass ratio] 15.5 mg/mg Normal [facility] Comment on above: Performed By: #### Zully SERRANO CMP, CRP #### [facility] [address] [place] [address] Sam Serene THEOPHYLLINEon 02-17-2021 THEOPHYLLINE 3.2 ug/mL Critically low 8.0-20.0 [facility] Comment on above: Performed By: #### Zully SERRANO CMP, CRP #### [facility] [address] [place] [address] Sam Serene XR CHEST 1 Von 02-17-2021 XR CHEST 1 V EXAM: XR CHEST 1 V REASON FOR EXAM: Male, 46 years, COUGH. TECHNIQUE: A single AP view of the chest is performed. COMPARISON: None. FINDINGS: There is diffuse bilateral patchy airspace disease, greatest within the left lung. No pleural effusion. Normal size heart. Normal mediastinum and anastacia. Normal visualized pulmonary arteries. Normal visualized aortic arch and descending thoracic aorta. Normal visualized thoracic spine. Normal visualized ribs, clavicles, and shoulders. There is no demonstrated abnormality of the visualized soft tissue structures of the upper abdomen. IMPRESSION: Diffuse bilateral patchy airspace disease, left greater than right. Findings are consistent with viral pneumonia. Electronically authenticated by: JANES EMERSON Date: 2021-02-16 22:19 Normal [facility] BLOOD GASES BTYon 02-16-2021 02 MODE NASAL CANNULA Normal [facility] Comment on above: Performed By: #### Zully SERRANO CMP, CRP #### [facility] [address] [place] [address] Sam Serene ALLENS TEST Positive Normal [facility] Comment on above: Performed By: #### Zully SERRANO CMP, CRP #### [facility] [address] [place] [address] Sam Serene Base excess Calc (Bld) [Moles/Vol] 1.0 mmol/L Normal -2.0-2.0 [facility] Comment on above: Performed By: #### Zully SERRANO CMP, CRP #### [facility] [address] [place] [address] Sam Serene BIPAP PRESSURE Normal [facility] Comment on above: Performed By: #### Zully SERRANO CMP, CRP #### [facility] [address] [place] [address] Sam Serene CO2 [Moles/Vol] 25.8 mmol/L Normal 23.0-28.0 [facility] Comment on above: Performed By: #### Zully SERRANO CMP, CRP #### [facility] [address] [place] [address] Sam Serene CPAP Normal [facility] Comment on above: Performed By: #### Zully SERRANO CMP, CRP #### [facility] [address] [place] [address] Sam Serene FIO2 Normal [facility] Comment on above: Performed By: #### Zully SERRANO CMP, CRP #### [facility] [address] [place] [address] Sam Serene HCO3 (Bld) [Moles/Vol] 24.7 mmol/L Normal 22.0-26.0 [facility] Comment on above: Performed By: #### Zully SERRANO CMP, CRP #### [facility] [address] [place] [address] Sam Serene LPM 2 Normal [facility] Comment on above: Performed By: #### Zully SERRANO CMP, CRP #### [facility] [address] [place] [address] Sam Serene MINUTE VOLUME Normal [facility] Comment on above: Performed By: #### Zully SERRANO CMP, CRP #### [facility] [address] [place] [address] Sam Serene Oxygen (Bld) [Partial pressure] 67.7 mm[Hg] Critically low 80.0-100.0 [facility] Comment on above: Performed By: #### Zully SERRANO CMP, CRP #### [facility] [address] [place] [address] Sam Serene Oxygen saturation in Blood 94.0 % Critically low 95.0-100.0 [facility] Comment on above: Performed By: #### Zully SERRANO CMP, CRP #### [facility] [address] [place] [address] Sam Serene PCO2 36.5 mmHg Normal 35.0-45.0 [facility] Comment on above: Performed By: #### Zully SERRANO CMP, CRP #### [facility] [address] [place] [address] Sam Serene PEEP Normal [facility] Comment on above: Performed By: #### Zully SERRANO CMP, CRP #### [facility] [address] [place] [address] Sam Serene pH (Bld) 7.449 [pH] Normal 7.350-7.450 [facility] Comment on above: Performed By: #### Zully SERRANO CMP, CRP #### [facility] [address] [place] [address] Sam Serene PIP Normal [facility] Comment on above: Performed By: #### Zully SERRANO CMP, CRP #### [facility] [address] [place] [address] Sam Serene PS Normal [facility] Comment on above: Performed By: #### Zully SERRANO CMP, CRP #### [facility] [address] [place] [address] Sam Serene PUNCTURE SITE LR Normal [facility] Comment on above: Performed By: #### Zully SERRANO CMP, CRP #### [facility] [address] [place] [address] Sam Serene RATE Normal [facility] Comment on above: Performed By: #### Zully SERRANO CMP, CRP #### [facility] [address] [place] [address] Sam Serene VENT MODE Normal [facility] Comment on above: Performed By: #### T ZACH, CMP, CRP #### [facility] [address] [place] [id number] Sam Serene [place] Normal [facility] Comment on above: Performed By: #### Zully SERRANO CMP, CRP #### [facility] [address] [place] [id number] Sam Serene CBC AUTO DIFFon 02-16-2021 BASO # 0.0 103/ul Normal 0.0-0.1 [facility] Comment on above: Performed By: #### Zully SERRANO CMP, CRP #### [facility] [address] [place] [address] Sam Serene Basophils/100 WBC (Bld) 0.6 % Normal 0.2-2.0 [facility] Comment on above: Performed By: #### Zully SERRANO CMP, CRP #### [facility] [address] [place] [address] Sam Serene EO # 0.0 103/ul Normal 0.0-0.7 [facility] Comment on above: Performed By: #### Zully SERRANO CMP, CRP #### [facility] [address] [place] [address] Sam Serene Eosinophils/100 WBC (Bld) 0.0 % Critically low 0.9-7.0 [facility] Comment on above: Performed By: #### Zully SERRANO CMP, CRP #### [facility] [address] [place], [place] [id number] Sam Serene Erythrocyte distribution width (RBC) [Ratio] 13.2 % Normal 11.0-15.0 [facility] Comment on above: Performed By: #### Zully SERRANO CMP, CRP #### [facility] [address] [place] [address] Sam Serene Hematocrit (Bld) [Volume fraction] 46.0 % Normal 42.0-54.0 [facility] Comment on above: Performed By: #### Zully SERRANO CMP, CRP #### [facility] [address] [place] [id number] Sam Serene Hemoglobin (Bld) [Mass/Vol] 14.8 g/dL Normal 14.0-18.0 [facility] Comment on above: Performed By: #### Zully SERRANO CMP, CRP #### [facility] [address] [place] [address] Sam Serene IG # 0.06 10e3/ul Critically high 0.00-0.03 [facility] Comment on above: Performed By: #### Zully SERRANO CMP, CRP #### [facility] [address] [place] [address] Sam Serene IG % 1.7 % Critically high 0.0-0.5 [facility] Comment on above: Performed By: #### Zully SERRANO CMP, CRP #### [facility] [address] [place] [address] Sam Serene LYMPH # 0.8 103/ul Critically low 1.2-3.8 [facility] Comment on above: Performed By: #### Zully SERRANO CMP, CRP #### [facility] [address] [place] [address] Sam Serene Lymphocytes/100 WBC (Bld) 21.5 % Normal 20.5-60.0 [facility] Comment on above: Performed By: #### Zully SERRANO CMP, CRP #### [facility] [address] [place] [address] Sam Serene MANUAL DIFF REQ NO Normal [facility] Comment on above: Performed By: #### Zully SERRANO CMP, CRP #### [facility] [address] [place] [address] Sam Serene MCH (RBC) [Entitic mass] 27.0 pg Normal 25.9-34.0 [facility] Comment on above: Performed By: #### Zully SERRANO CMP, CRP #### [facility] [address] [place] [address] Sam Serene MCHC (RBC) [Mass/Vol] 32.2 g/dL Normal 29.9-35.2 [facility] Comment on above: Performed By: #### Zully SERRANO CMP, CRP #### [facility] [address] [place] [address] Sam Serene MCV (RBC) [Entitic vol] 83.8 fL Normal 80.0-94.0 [facility] Comment on above: Performed By: #### Zully SERRANO CMP, CRP #### [facility] [address] [place], [place] [id number] Sam Serene MONO # 0.2 103/ul Critically low 0.3-0.8 [facility] Comment on above: Performed By: #### Zully SERRANO CMP, CRP #### [facility] [address] [place] [address] Sam Serene Monocytes/100 WBC (Bld) 6.1 % Normal 1.7-12.0 [facility] Comment on above: Performed By: #### Zully SERRANO CMP, CRP #### [facility] [address] [place] [address] Sam Serene NEUT # 2.5 103/ul Normal 1.4-6.5 [facility] Comment on above: Performed By: #### Zully SERRANO CMP, CRP #### [facility] [address] [place] [address] Sam Serene Neutrophils/100 WBC (Bld) 70.1 % Normal 43.0-75.0 [facility] Comment on above: Performed By: #### Zully SERRANO CMP, CRP #### [facility] [address] [place], [place] [id number] Sam Serene Platelet mean volume (Bld) [Entitic vol] 9.6 fL Normal 9.5-13.5 [facility] Comment on above: Performed By: #### Zully SERRANO CMP, CRP #### [facility] [address] [place] [address] Sam Serene PLT 160 103/ul Normal 150-450 [facility] Comment on above: Performed By: #### Zully SERRANO CMP, CRP #### [facility] [address] [place] [address] Sam Serene RBC 5.49 106/ul Normal 4.70-6.10 [facility] Comment on above: Performed By: #### Zully SERRANO CMP, CRP #### [facility] [address] [place] [id number] Sam Serene WBC 3.6 103/ul Critically low 4.0-11.[address] [facility] Comment on above: Performed By: #### Zully SERRANO CMP, CRP #### [facility] [address] [place] [address] Sam Cast PROF 14(COMP METB)on 021 Albumin [Mass/Vol] 2.8 g/dL Critically low 3.5-5.0 [facility] Comment on above: Performed By: #### Zully SERRANO CMP, CRP #### [facility] [address] [place] [id number] Sam Serene Albumin/Globulin [Mass ratio] 0.6 {ratio} Normal [facility] Comment on above: Performed By: #### Zully SERRANO CMP, CRP #### [facility] [address] [place] [address] Sam Serene ALP [Catalytic activity/Vol] 153 U/L Critically high 38-126 [facility] Comment on above: Performed By: #### Zully SERRANO CMP, CRP #### [facility] [address] [place] [address] Sam Serene ALT [Catalytic activity/Vol] 71 U/L Normal 21-72 [facility] Comment on above: Performed By: #### Zully SERRANO CMP, CRP #### [facility] [address] [place] [id number] Sam Serene Anion gap [Moles/Vol] 13.1 mmol/L Normal [facility] Comment on above: Performed By: #### Zully SERRANO CMP, CRP #### [facility] [address] [place] [id number] Sam Serene AST [Catalytic activity/Vol] 90 U/L Critically high 17-59 [facility] Comment on above: Performed By: #### Zully SERRANO CMP, CRP #### [facility] [address] [place] [id number] Sam Serene Bilirubin [Mass/Vol] 0.5 mg/dL Normal 0.2-1.3 [facility] Comment on above: Performed By: #### Zully SERRANO CMP, CRP #### [facility] [address] [place] [address] Sam Serene Calcium [Mass/Vol] 8.5 mg/dL Normal 8.4-10.2 [facility] Comment on above: Performed By: #### Zully SERRANO CMP, CRP #### [facility] [address] [place] [address] Sam Serene Chloride [Moles/Vol] 100 mmol/L Normal 98-107 [facility] Comment on above: Performed By: #### Zully SERRANO CMP, CRP #### [facility] [address] [place] [address] Sam Serene CO2 [Moles/Vol] 27.7 mmol/L Normal 22.0-30.0 [facility] Comment on above: Performed By: #### Zully SERRANO CMP, CRP #### [facility] [address] [place] [address] Sam Serene Creatinine [Mass/Vol] 1.10 mg/dL Normal 0.66-1.25 [facility] Comment on above: Performed By: #### Zully SERRANO CMP, CRP #### [facility] [address] [place] [address] Sam Serene EGFR-AF GAMBIAN >60 Normal >=60 [facility] Comment on above: Performed By: #### Zully SERRANO CMP, CRP #### [facility] [address] [place] [address] Sam Serene EGFR-NON AF GAMBIAN >60 Normal >=60 [facility] Comment on above: Performed By: #### Zully SERRANO CMP, CRP #### [facility] [address] [place] [address] Sam Serene Globulin (S) [Mass/Vol] 4.5 g/dL Normal [facility] Comment on above: Performed By: #### Zully SERRANO CMP, CRP #### [facility] [address] [place], [place] [address] Sam Serene Glucose [Mass/Vol] 108 mg/dL Critically high 74-106 [facility] Comment on above: Performed By: #### Zully SERRANO CMP, CRP #### [facility] [address] [place] [address] Sam Serene Potassium [Moles/Vol] 3.8 mmol/L Normal 3.4-5.0 [facility] Comment on above: Performed By: #### Zully SERRANO CMP, CRP #### [facility] [address] [place] [address] Sam Serene Protein [Mass/Vol] 7.3 g/dL Normal 6.1-8.2 [facility] Comment on above: Performed By: #### Zully SERRANO CMP, CRP #### [facility] [address] [place] [address] Sam Serene Sodium [Moles/Vol] 137 mmol/L Normal 137-145 [facility] Comment on above: Performed By: #### Zully SERRANO CMP, CRP #### [facility] [address] [place] [address] Sam Serene Urea nitrogen [Mass/Vol] 14.0 mg/dL Normal 9.0-20.0 [facility] Comment on above: Performed By: #### Zully SERRANO CMP, CRP #### [facility] [address] [address] Sam Serene Urea nitrogen/Creatinine [Mass ratio] 12.7 mg/mg Normal [facility] Comment on above: Performed By: #### Zully SERRANO CMP, CRP #### [facility] [address] [id number] Sam Serene Encounters Encounter Date Encounter Type Care Provider Facility Start: 11-13-2023 End: 11-13-2023 ambulatory GEORGE Mary RENEE [facility] Start: 10-16-2023 End: 10-17-2023 ambulatory PROSPER BURNS Not Available Start: 07-04-2021 End: 07-05-2021 ambulatory ASA PICKERING Facility:[facility] Start: 02-17-2021 End: 02-21-2021 Evaluation and management of inpatient DR PROSPER BURNS Facility:[facility] Payers Date Payer Category Payer Unknown [id number] [id number] [id number] 1975 Unknown [id number] [id number] [id number] 1975 Unknown [id number] [id number] [id number] 1977 Unknown [id number] 2.16.8 [id number] 1959 Unknown [id number] Summary Purpose Family History No Family History Records FoundNo Family History Records FoundNo Family History Records Found Advance Directives No Advanced Directives Records FoundNo Advanced Directives Records FoundNo Advanced Directives Records Found Additional Source Comments (unrecognized sect ion and content) No Status Records FoundNo Status Records FoundNo Status Records Found INFORMATION SOURCE (unrecogn ized section and content) DATE CREATED AUTHOR 07/10/2021 [facility] [place] [facility] DATE CREATED AUTHOR AUTHOR'S ORGANIZ ATION 10/21/2023 [facility] EPIC DATE CREATED AUTHOR AUTHOR'S ORGANIZ ATION 11/14/2023 [facility] FOR RECORDS PERTAINING TO PATIENTS WHO ARE OR HAVE BEEN ENROLLED IN A CHEMICAL DEPENDENCY/SUBSTANCEABUSE PROGRAM, SOME INFORMATION MAY BE OMITTED. This clinical summary was aggregated from multiple sources. Caution should be exercised in using it in the provision of clinical care. This summary normalizes information from multiple sources, and as a consequence, information in this document may materially change the coding, format and clinical context of patient data. In addition, data may be omitted in some cases. CLINICAL DECISIONS SHOULD BE BASED ON THE PRIMARY CLINICAL RECORDS. [employer] provides no warranty or guarantee of the accuracy or completeness of information in this document.
[2023-12-12 06:57] VITALS: BP 135/78; PULSE 64; TEMP 35.8; O2SAT 98; BMI 35.4
[2023-12-12] MEDS: LACTATED RINGER'S SOLUTION 1,000 ML 50 ML IV (07:08)
--- NOTE | 2023-12-12 07:16 | P.GSPRC_ITS ---
Date of procedure: 12/12/23 Indications for Procedure: screening for cancer Pre-op diagnosis: screening for cancer Post-op diagnosis: other (Colon polyp less than 5 mm splenic flexure) Procedure: colonoscopy Findings: Colon polyp Anesthesia: MAC Surgeon: Jimmie Randolph Procedure Summary: PROCEDURE: The patient was taken to the Endoscopy Suite, placed in the left lateral recumbent position, given IV sedation as above. A rectal digital exam was performed. The sphincter tone was found to be normal. No rectal masses were appreciated. Prostate was smooth not enlarged without nodules. The Olympus video colonoscope was advanced under direct visualization to the rectum, sigmoid colon, descending colon, transverse colon and ascending colon to the ileocecal valve. The underside of the valve was seen.Appendiceal lumen was visualized. The scope was slowly withdrawn with air being desufflated as it was withdrawn. No gross tumors or diverticula were seen. There was a small polyp in the splenic flexure which was hot snared and retrieved. Hemostasis was maintained. Rest of the colon was normal. The scope was retroflexed and soft. The patient tolerated the procedure well and went to the Recovery Area in satisfactory condition. Prep was adequate. If this is a tubular adenoma p atient will need to return in 5 years for surveillance. Will call with results Estimated blood loss (mL): 0 Specimens: Colon polyp Complications: No Condition: stable Disposition: PACU
[2023-12-12 07:47] VITALS: BP 105/62; PULSE 61; O2SAT 94
[2023-12-12 08:02] VITALS: BP 109/53; PULSE 53; O2SAT 16
[2023-12-12 08:17] VITALS: BP 123/74; PULSE 57; O2SAT 98
== END 2023-12-12 08:17 | disposition home or self-care (01) ==
PROVIDERS: PCP Family Medicine; Visit Provider Surgery
PROC: (CPT 812; principal; 2023-12-12 07:30)
DX: Z12.11 Encounter for screening for malignant neoplasm of colon (principal); D12.3 Benign neoplasm of transverse colon; Z80.0 Family history of malignant neoplasm of digestive organs; E66.9 Obesity, unspecified; Z68.35 Body mass index [BMI] 35.0-35.9, adult; G47.33 Obstructive sleep apnea (adult) (pediatric)
CPT/HCPCS: 45385; 88305; J2704